=== PATIENT | female | born 1945 | race Caucasian/White ===

== ENCOUNTER 2022-05-07 08:54 | Outpatient (CLI) | payer MEDICARE | END 2022-05-07 08:55 | disposition home or self-care (01) | LOC: LABBT 08:54 | PROVIDERS: ATTEND Neurological Surgery | DX: Z20.822 Contact with and (suspected) exposure to COVID-19 (principal) | CPT/HCPCS: 87811 ==

== ENCOUNTER 2022-05-10 06:41 | Day surgery (SDC) | payer MEDICARE ==
[2022-05-09 09:15] VITALS: BMI 16.6
[2022-05-10] MEDS ORDERED: fentaNYL Citrate/PF 100 MCG/2 ML SYRINGE ONE (08:47)
[2022-05-10] MEDS ORDERED: Midazolam HCl 2 mg/2 ml Vial ONE (08:47)
[2022-05-10] MEDS ORDERED: Ketamine 50 MG/ML (10ML VIAL) ONE (08:47)
[2022-05-10] MEDS ORDERED: Sodium Chloride 0.9% 100 ML ONE ×2 (08:59→13:43)
[2022-05-10] MEDS ORDERED: CEFAZOLIN 2 GM VIAL ONE ×2 (08:59→13:43)
[2022-05-10] MEDS ORDERED: Labetalol HCl 100 MG/20 ML VIAL ONE (09:08)
[2022-05-10] MEDS ORDERED: Dexamethasone 20 MG/5 ML VIAL ONE (09:08)
[2022-05-10] MEDS ORDERED: ePHEDrine 50 MG/ML VIAL ONE (09:08)
[2022-05-10] MEDS ORDERED: Ondansetron PF 4 MG/2 ML Vial ONE (09:08)
[2022-05-10] MEDS ORDERED: Lidocaine 1% MPF 2 ML VIAL ONE (09:08)
[2022-05-10] MEDS ORDERED: PROPOFOL 200 MG/20 ML VIAL ONE (09:08)
[2022-05-10] MEDS ORDERED: Rocuronium Bromide 10 MG/ML (10ML VIAL) ONE (09:08)
[2022-05-10] MEDS ORDERED: SUGAMMADEX SODIUM 200 MG/2 ML VIAL ONE (09:54)
[2022-05-10] MEDS ORDERED: Fentanyl 100 MCG/2 ML VIAL ONE (10:29)
[2022-05-10] MEDS ORDERED: hydrALAZINE 20 MG/ML VIAL ONE (11:06)
[2022-05-10] MEDS ORDERED: Acetaminophen/Codeine 30-300mg Tablet ONE (13:43)
[2022-05-10] MEDS ORDERED: Ondansetron ODT 4 MG TAB ONE (14:48)
== END 2022-05-10 15:06 | disposition home or self-care (01) ==
LOC: SDC 06:41
PROVIDERS: ATTEND Neurological Surgery
PROC: 0RG10A0 Fusion of Cervical Vertebral Joint with Interbody Fusion Device, Anterior Approach, Anterior Column, Open Approach (ICD-10-PCS; principal; 2022-05-10)
DX: M54.12 Radiculopathy, cervical region (principal); M48.02 Spinal stenosis, cervical region; G89.29 Other chronic pain; F17.200 Nicotine dependence, unspecified, uncomplicated; Z79.899 Other long term (current) drug therapy
CPT/HCPCS: 20930; 20936; 22551; 22845; 22853; 76000; C1713 ×3; J0360; J0690; J1100; J2250; J2405; J2704; J3010; J3490; Q0162